=== PATIENT | male | born 1970 | race Caucasian/White ===

== ENCOUNTER 2018-03-12 15:52 | Emergency (ER) | payer OTHER ==
--- NOTE | 2018-03-12 16:56 | EDM.PDOC ---
ED HPI GENERAL MEDICAL PROBLEM - General Chief Complaint: Genitourinary Problem Stated Complaint: INJURY AT WORK Time Seen by Provider: 03/12/18 15:54 Source of Information: Reports: Patient History Limitations: Reports: No Limitations - History of Present Illness INITIAL COMMENTS - FREE TEXT/NARRATIVE: History of present illness: []Patient has had pain in his left inguinal area radiating to his left testicle for 3 days. It is worse when he bends down, stands up and lifts. He denies any trauma, fevers,chills, difficulty urinating or blood in his urine. Review of systems: As per history of present illness and below otherwise all systems reviewed and negative. Past medical history: As per history of present illness and as reviewed below otherwise noncontributory. Surgical history: As per history of present illness and as reviewed below otherwise noncontributory. Social history: No reported history of drug or alcohol abuse. Family history: As per history of present illness and as reviewed below otherwise noncontributory. Physical exam: General: Well developed, well nourished in NAD HEENT: Atraumatic, normocephalic, pupils reactive, negative for conjunctival pallor or scleral icterus, mucous membranes moist, throat clear, neck supple, nontender, trachea midline. Lungs: Clear to auscultation, breath sounds equal bilaterally, chest nontender. Heart: S1S2, regular, negative for clicks, rubs, or JVD. Abdomen: Soft, nondistended, nontender. Negative for masses or hepatosplenomegaly. Negative for costovertebral tenderness. Pelvis: Stable nontender. Genitourinary: Uncircumcised no palpable tenderness or mass in the inguinal canal, there is tenderness at the base of the left scrotum I do not appreciate a mass including when he Valsalva's. There is no skin changes. Rectal: Deferred. Extremities: Atraumatic, negative for cords or calf pain. Neurovascular unremarkable. Neuro: Awake, alert, oriented. Cranial nerves II through XII unremarkable. Cerebellum unremarkable. Motor and sensory unremarkable throughout. Exam nonfocal. Skin:warm and dry Diagnostics: UA, ultrasound left scrotum is normal time Therapeutics: Patient declined pain meds ED Course: Unremarkable Impression: Inguinal left Hernia Prescriptions: None Plan: No squatting or lifting over 20 pounds. Follow-up with general surgery Definitive disposition and diagnosis as appropriate pending reevaluation and review of above. left groin, testicle Pain Score (Numeric/FACES): 6 - Related Data Allergies Allergy/AdvReac Type Severity Reaction Status Date / Time No Known Allergies Allergy Verified 03/12/18 16:03 Home Meds: Home Meds . [No Known Home Meds] 09/21/14 [History] Past Medical History - Past Health History Medical/Surgical History: Denies Medical/Surgical History - Past Surgical History Musculoskeletal Surgical History: Reports: Other (See Below) Other Musculoskeletal Surgeries/Procedures:: compound fx R arm Social & Family History - Family History Family Medical History: Noncontributory - Tobacco Use Smoking Status *Q: Never Smoker - Caffeine Use Caffeine Use: Reports: Coffee - Recreational Drug Use Recreational Drug Use: No ED ROS GENERAL - Review of Systems Review Of Systems: ROS reveals no pertinent complaints other than HPI. ED EXAM, RENAL/ - Physical Exam Exam: See Below (See history of present illness) Course - Vital Signs Last Recorded V/S: Last Vital Signs Temp 97.3 F 03/12/18 16:00 Pulse 92 03/12/18 17:16 Resp 16 03/12/18 17:16 BP 136/83 03/12/18 17:16 Pulse Ox 95 03/12/18 17:16 - Orders/Labs/Meds Orders: Active Orders 24 hr Category Date Time Status Scrotal Duplex Ltd [US] Routine Exams 03/12/18 Ordered Scrotum and Contents [US] Stat Exams 03/12/18 16:26 Taken Labs: Laboratory Tests 03/12/18 Range/Units 17:05 Urine Color YELLOW Urine Appearance CLEAR Urine pH 6.0 (5.0-8.0) Ur Specific [place] >= 1.030 (1.001-1.035) Urine Protein NEGATIVE (NEGATIVE) mg/dL Urine Glucose (UA) NEGATIVE (NEGATIVE) mg/dL Urine Ketones NEGATIVE (NEGATIVE) mg/dL Urine Occult Blood NEGATIVE (NEGATIVE) Urine Nitrite NEGATIVE (NEGATIVE) Urine Bilirubin NEGATIVE (NEGATIVE) Urine Urobilinogen 1.0 (<2.0) EU/dL Ur Leukocyte Esterase NEGATIVE (NEGATIVE) Urine RBC 0-1 (0-2/HPF) Urine WBC 0-1 (0-5/HPF) Ur Epithelial Cells RARE (NONE-FEW) Urine Bacteria RARE (NEGATIVE) Departure - Departure Time of Disposition: 18:13 Disposition: Home, Self-Care 01 Condition: Good Clinical Impression: Left inguinal hernia - Discharge Information *PRESCRIPTION DRUG MONITORING PROGRAM REVIEWED*: Not Applicable *COPY OF PRESCRIPTION DRUG MONITORING REPORT IN PATIENT OLIVIA: Not Applicable Referrals: PCP,None [Primary Care Provider] - Forms: ED Department Discharge Additional Instructions: The following information is given to patients seen in the emergency department who are being discharged to home. This information is to outline your options for follow-up care. We provide all patients seen in our emergency department with a follow-up referral. The need for follow-up, as well as the timing and circumstances, are variable depending upon the specifics of your emergency department visit. If you don't have a primary care physician on staff, we will provide you with a referral. We always advise you to contact your personal physician following an emergency department visit to inform them of the circumstance of the visit and for follow-up with them and/or the need for any referrals to a consulting specialist. The emergency department will also refer you to a specialist when appropriate. This referral assures that you have the opportunity for follow-up care with a specialist. All of these measure are taken in an effort to provide you with optimal care, which includes your follow-up. Under all circumstances we always encourage you to contact your private physician who remains a resource for coordinating your care. When calling for follow-up care, please make the office aware that this follow-up is from your recent emergency room visit. If for any reason you are refused follow-up, please contact the [facility] Emergency Department at and asked to speak to the emergency department charge nurse. Follow-up with general surgery, no squatting or lifting greater than 20 pounds. [facility] Specialty Care - General Surgery Professional Building [address] [place] [address], [address] [place] [address] - My Orders Last 24 Hours: My Active Orders 03/12/18 Scrotal Duplex Ltd [US] Routine 03/12/18 16:26 Scrotum and Contents [US] Stat - Assessment/Plan Last 24 Hours: My Active Orders 03/12/18 Scrotal Duplex Ltd [US] Routine 03/12/18 16:26 Scrotum and Contents [US] Stat
[2018-03-12 17:18] VITALS: BP 136/83
--- NOTE | 2018-03-13 11:26 | US ---
EXAM DATE: 03/12/18 PATIENT'S AGE: 48 Patient: MK MENDEZ Facility: [place], [place] Site . Site : 1970 Study: US Testicle [id number] 5:10:38 PM Ordering Physician: Sawyer Rider Final Report: INDICATION: Left testicle pain worse when lifting left leg TECHNIQUE: Ultrasound scrotum and contents. Real-time horvath scale sonographic images with spectral and color Doppler imaging of the testicles were obtained. COMPARISON: None FINDINGS: Right testis: 4.4 x 2.1 x 3.3 cm. The right testis is appearance and echotexture. Normal arterial and venous blood flow seen in the right testis. Left testis: 3.9 x 1.9 x 2.8 cm. The left testis is appearance and echotexture. Normal arterial and venous blood flow seen in the left testis. Epididymis: The epididymis are unremarkable in size and echogenicity and have normal blood flow. Soft tissue: No significant hydrocele or varicocele noted. No adenopathy is seen. IMPRESSION: 1. Unremarkable scrotal ultrasound. Dictated by Willian Toribio MD @ 03/12/2018 5:43:49 PM Dictated by: Willian Toribio MD @ 03/12/2018 17:43:56 (Electronic Signature) Report Signed by Proxy. [facility]
--- NOTE | 2018-03-13 11:26 | US ---
EXAM DATE: 03/12/18 PATIENT'S AGE: 48 Patient: MK MENDEZ Facility: [place], [place] Site . Site : 1970 Study: US Testicle [id number] 5:10:38 PM Ordering Physician: Sawyer Rider Final Report: INDICATION: Left testicle pain worse when lifting left leg TECHNIQUE: Ultrasound scrotum and contents. Real-time horvath scale sonographic images with spectral and color Doppler imaging of the testicles were obtained. COMPARISON: None FINDINGS: Right testis: 4.4 x 2.1 x 3.3 cm. The right testis is appearance and echotexture. Normal arterial and venous blood flow seen in the right testis. Left testis: 3.9 x 1.9 x 2.8 cm. The left testis is appearance and echotexture. Normal arterial and venous blood flow seen in the left testis. Epididymis: The epididymis are unremarkable in size and echogenicity and have normal blood flow. Soft tissue: No significant hydrocele or varicocele noted. No adenopathy is seen. IMPRESSION: 1. Unremarkable scrotal ultrasound. Dictated by Willian Toribio MD @ 03/12/2018 5:43:49 PM Dictated by: Willian Toribio MD @ 03/12/2018 17:43:56 (Electronic Signature) Report Signed by Proxy. [facility]
== END 2018-03-12 18:28 | disposition home or self-care (01) ==
LOC: MW.ED 15:52
DX: K40.90 Unilateral inguinal hernia, without obstruction or gangrene, not specified as recurrent (principal)
CPT/HCPCS: 76870; 76870-26; 81001; 93976; 93976-26; 99283; 99284-25

== ENCOUNTER 2019-01-22 06:24 | Emergency (ER) | payer SELFPAY ==
--- NOTE | 2019-01-22 06:38 | EDM.PDOC ---
ED HPI GENERAL MEDICAL PROBLEM - General Chief Complaint: Genitourinary Problem Stated Complaint: GROIN PAIN Time Seen by Provider: 01/22/19 06:37 Source of Information: Reports: Patient History Limitations: Reports: No Limitations - History of Present Illness INITIAL COMMENTS - FREE TEXT/NARRATIVE: History of present illness: []Patient has had one day of sharp brief pains in his testicles that radiate straight up through the his middle to his abdomen. He denies any difficulty urinating, fevers, chills, nausea or vomiting. Review of systems: As per history of present illness and below otherwise all systems reviewed and negative. Past medical history: As per history of present illness and as reviewed below otherwise noncontributory. Surgical history: As per history of present illness and as reviewed below otherwise noncontributory. Social history: No reported history of drug or alcohol abuse. Family history: As per history of present illness and as reviewed below otherwise noncontributory. Physical exam: General: Well developed, well nourished in NAD HEENT: Atraumatic, normocephalic, pupils reactive, negative for conjunctival pallor or scleral icterus, mucous membranes moist, throat clear, neck supple, nontender, trachea midline. Lungs: Clear to auscultation, breath sounds equal bilaterally, chest nontender. Heart: S1S2, regular, negative for clicks, rubs, or JVD. Abdomen: NABS, Soft, nondistended, nontender. Negative for masses or hepatosplenomegaly. Negative for costovertebral tenderness. Pelvis: Stable nontender. Genitourinary: Uncircumcised normal genitalia no swelling, erythema or tenderness to testicles no inguinal hernia noted on Valsalva. Rectal: No tenderness on prostate exam Extremities: Atraumatic, negative for cords or calf pain. Neurovascular unremarkable. Neuro: Awake, alert, oriented. Cranial nerves II through XII unremarkable. Cerebellum unremarkable. Motor and sensory unremarkable throughout. Exam nonfocal. Skin:warm and dry Diagnostics: UA, CT abdomen pelvis without contrast-Nephrolithiasis and evidence of recent passage of a 2 mm calculus into the bladder lumen. Therapeutics: Declined pain meds ED Course: Stable Impression: Nephrolithiasis Prescriptions: flomax Plan: Follow-up with urology Take Tylenol or Motrin as directed, follow up with your primary care physician, return to ER if symptoms worsen or change. Definitive disposition and diagnosis as appropriate pending reevaluation and review of above. testicles Pain Score (Numeric/FACES): 8 - Related Data Allergies Allergy/AdvReac Type Severity Reaction Status Date / Time No Known Allergies Allergy Verified 01/22/19 06:28 Home Meds: Home Meds Tamsulosin HCl [Flomax] 0.4 mg PO DAILY #14 cap.er.24h 01/22/19 [Rx] Past Medical History - Past Health History Medical/Surgical History: Denies Medical/Surgical History HEENT History: Reports: None Cardiovascular History: Reports: None Respiratory History: Reports: None Genitourinary History: Reports: Renal Calculus Musculoskeletal History: Reports: Fracture Neurological History: Reports: None Psychiatric History: Reports: None Endocrine/Metabolic History: Reports: Obesity/BMI 30+ Hematologic History: Reports: None Immunologic History: Reports: None Oncologic (Cancer) History: Reports: None Dermatologic History: Reports: None - Infectious Disease History Infectious Disease History: Reports: Chicken Pox - Past Surgical History Head Surgeries/Procedures: Reports: None GI Surgical History: Reports: Hernia, Inguinal Male Surgical History: Reports: None Musculoskeletal Surgical History: Reports: ORIF, Other (See Below) Other Musculoskeletal Surgeries/Procedures:: compound fx R arm Social & Family History - Family History Family Medical History: Noncontributory - Tobacco Use Smoking Status *Q: Never Smoker - Caffeine Use Caffeine Use: Reports: Coffee - Recreational Drug Use Recreational Drug Use: No ED ROS GENERAL - Review of Systems Review Of Systems: See Below ED EXAM, RENAL/ - Physical Exam Exam: See Below Course - Vital Signs Last Recorded V/S: Last Vital Signs Temp 96.3 F 01/22/19 06:28 Pulse 79 01/22/19 06:28 Resp 18 01/22/19 06:28 BP 144/98 H 01/22/19 06:28 Pulse Ox 96 01/22/19 06:28 - Orders/Labs/Meds Labs: Laboratory Tests 01/22/19 Range/Units 06:37 Urine Color YELLOW Urine Appearance CLEAR Urine pH 6.0 (5.0-8.0) Ur Specific [place] >= 1.030 (1.001-1.035) Urine Protein NEGATIVE (NEGATIVE) mg/dL Urine Glucose (UA) NEGATIVE (NEGATIVE) mg/dL Urine Ketones NEGATIVE (NEGATIVE) mg/dL Urine Occult Blood SMALL H (NEGATIVE) Urine Nitrite NEGATIVE (NEGATIVE) Urine Bilirubin NEGATIVE (NEGATIVE) Urine Urobilinogen 1.0 (<2.0) EU/dL Ur Leukocyte Esterase NEGATIVE (NEGATIVE) Urine RBC 4-6 (0-2/HPF) Urine WBC 0-1 (0-5/HPF) Ur Epithelial Cells RARE (NONE-FEW) Urine Bacteria RARE (NEGATIVE) Departure - Departure Time of Disposition: 08:56 Disposition: Home, Self-Care 01 Condition: Good Clinical Impression: Kidney stone - Discharge Information *PRESCRIPTION DRUG MONITORING PROGRAM REVIEWED*: Not Applicable *COPY OF PRESCRIPTION DRUG MONITORING REPORT IN PATIENT OLIVIA: Not Applicable Prescriptions: Tamsulosin HCl [Flomax] 0.4 mg PO DAILY #14 cap.er.24h Referrals: PCP,None [Primary Care Provider] - Forms: ED Department Discharge Additional Instructions: The following information is given to patients seen in the emergency department who are being discharged to home. This information is to outline your options for follow-up care. We provide all patients seen in our emergency department with a follow-up referral. The need for follow-up, as well as the timing and circumstances, are variable depending upon the specifics of your emergency department visit. If you don't have a primary care physician on staff, we will provide you with a referral. We always advise you to contact your personal physician following an emergency department visit to inform them of the circumstance of the visit and for follow-up with them and/or the need for any referrals to a consulting specialist. The emergency department will also refer you to a specialist when appropriate. This referral assures that you have the opportunity for follow-up care with a specialist. All of these measure are taken in an effort to provide you with optimal care, which includes your follow-up. Under all circumstances we always encourage you to contact your private physician who remains a resource for coordinating your care. When calling for follow-up care, please make the office aware that this follow-up is from your recent emergency room visit. If for any reason you are refused follow-up, please contact the [facility] Emergency Department at and asked to speak to the emergency department charge nurse. Take meds as directed, follow up with your primary care physician, return to ER if symptoms worsen or change. [facility] [address] [place] [id number]
[2019-01-22 06:41] VITALS: BP 144/98
--- NOTE | 2019-01-22 08:39 | CT ---
INDICATION: Hematuria, groin pain. TECHNIQUE: A CT volumetric acquisition was performed of the abdomen and pelvis without intravenous contrast. COMPARISON: None. FINDINGS: There is minimal dependent atelectasis at the right lung base. The patient`s liver and spleen demonstrate normal size and uniform density. There is a small accessory splenule at the anterior margin of the spleen. There is no evidence of mass or inflammation within the pancreas. Gallbladder and bile ducts are normal in size. Adrenal glands have normal morphology. There are bilateral nonobstructing calculi within both kidneys measuring 1-5 mm in size. There is no evidence of edema or perinephric fluid stranding. There is mild prominence of the right renal pelvis and ureter. The right ureter can be followed distally into the pelvis where there is a 2 mm calculus within the posterior bladder lumen. The radiographic changes would suggest recent stone passage. Mild atherosclerotic changes are present within the aorta. There is no evidence of retroperitoneal lymphadenopathy. The small intestine and colon appear normal. The prostate gland appears normal. IMPRESSION: Nephrolithiasis and evidence of recent passage of a 2 mm calculus into the bladder lumen. Please note that all CT scans at this facility use dose modulation, iterative reconstruction, and/or weight-based dosing when appropriate to reduce radiation dose to as low as reasonably achievable. Dictated by Marty Narvaez MD @ Jan 22 2019 8:33AM Signed by Dr. Marty Narvaez @ Jan 22 2019 8:39AM
== END 2019-01-22 09:15 | disposition home or self-care (01) ==
LOC: MW.ED 06:24
DX: N20.0 Calculus of kidney (principal); E66.9 Obesity, unspecified; Z68.31 Body mass index [BMI] 31.0-31.9, adult
CPT/HCPCS: 74176; 74176-26; 81001; 99284; 99284-25